=== PATIENT | female | born 1955 | race Caucasian/White ===

== ENCOUNTER 2023-09-02 07:28 | Observation (INO) ==
--- NOTE | 2023-08-08 13:13 | PAT Medication Instructions ---
Medication Instructions Date of Service August 08, 2023 Home Medications acetaminophen 500 mg tablet (Tylenol Extra Strength) 1,000 mg PO Q6H PRN aspirin 81 mg tablet,delayed release 81 mg PO HS atorvastatin 10 mg tablet 10 mg PO QAM cholecalciferol (vitamin D3) 25 mcg (1,000 unit) tablet (Vitamin D3) 25 mcg PO HS duloxetine 30 mg capsule,delayed release 30 mg PO QAM duloxetine 60 mg capsule,delayed release 60 mg PO QAM meclizine 25 mg tablet 25 mg PO TID PRN metformin 500 mg tablet 500 mg PO HS rabeprazole 20 mg tablet,delayed release (AcipHex) See Rx Instructions .Route .COMPLEX lorazepam 0.5 mg tablet 0.5 mg PO DAILY PRN ondansetron HCl 8 mg tablet 8 mg PO Q12H PRN lisinopril 5 mg tablet 20 mg PO QAM metoprolol succinate 25 mg tablet,extended release 24 hr 25 - 50 mg PO BID gabapentin 300 mg capsule 300 mg PO HS Continue as directed rabeprazole 20 mg tablet,delayed release (AcipHex) See Rx Instructions .Route .COMPLEX lorazepam 0.5 mg tablet 0.5 mg PO DAILY PRN(if needed) ASK your prescriber and surgeon aspirin 81 mg tablet,delayed release 81 mg PO HS DO NOT take the morning of surgery lisinopril 5 mg tablet 20 mg PO QAM Take morning of surgery With a small sip of water, OTHERWISE NOTHING TO EAT OR DRINK AFTER MIDNIGHT: acetaminophen 500 mg tablet (Tylenol Extra Strength) 1,000 mg PO Q6H PRN(if needed) atorvastatin 10 mg tablet 10 mg PO QAM duloxetine 30 mg capsule,delayed release 30 mg PO QAM duloxetine 60 mg capsule,delayed release 60 mg PO QAM meclizine 25 mg tablet 25 mg PO TID PRN(if needed) ondansetron HCl 8 mg tablet 8 mg PO Q12H PRN(if needed) metoprolol succinate 25 mg tablet,extended release 24 hr 25 - 50 mg PO BID Take evening before surgery acetaminophen 500 mg tablet (Tylenol Extra Strength) 1,000 mg PO Q6H PRN(if needed) cholecalciferol (vitamin D3) 25 mcg (1,000 unit) tablet (Vitamin D3) 25 mcg PO HS meclizine 25 mg tablet 25 mg PO TID PRN(if needed) ondansetron HCl 8 mg tablet 8 mg PO Q12H PRN(if needed) metformin 500 mg tablet 500 mg PO HS metoprolol succinate 25 mg tablet,extended release 24 hr 25 - 50 mg PO BID gabapentin 300 mg capsule 300 mg PO HS Other Notes If you have any questions please call us at [phone] or [phone] or [phone] or [phone]
--- NOTE | 2023-08-13 09:14 | Anesthesiology Consultation ---
Date of Service August 13, 2023 Assessment & Plan (1) Encounter for pre-operative examination: Plan - check BSG am DOS. - ER [facility], [place] 08/02/23: "...chest pain...cough, nausea, shortness of breath, pain across the back, stress...ECG showed a sinus tachycardia...negative cardiac troponin and chest x-ray. Her COVID, flu, RSV testing was negative. She had some mild hyperglycemia on her chemistry panel. There was a leukocytosis on CBC. The patient had a negative chest x-ray. In light of her tachycardia and symptoms a CT angio was performed to rule out PE or other pathology not seen on chest x-ray. Patient was given Tylenol, hydrated and given Zofran due to her nausea. On reassessment she was feeling somewhat better...mild headache but chest symptoms were improved. Nausea resolved. Patient was taken for CT imaging. After CT imaging the patient did note some nausea postcontrast administration. No hives or allergic symptoms. Patient was given additional dose of Zofran. She did request her evening gabapentin and Toprol. These were administered. Patient was noting improvement and blood pressure did improve. Given the flulike symptoms and findings on examination I discussed conservative management with the patient. She does not have any meningeal findings. Her blood pressure is improving. No PE or cardiac abnormalities on blood work or ECG. I suspect that this is infectious in nature given her leukocytosis and symptoms. Discussed initiation of doxycycline, Zofran as needed, albuterol and Tylenol. Patient has had no problems with doxycycline in the past. Patient does note sensitivity to most analgesia other than Tylenol. I will have her continue Tylenol and rest at home. Warning signs and symptoms for ER return were discussed. I gave my usual and customary discussion regarding this issue. By the evaluation outlined above other emergent etiologies such as those listed in the differential, as well as others, were deemed relatively unlikely..." - Case discussed in detail with Dr. Millan who advised patient is acceptable to proceed with surgery and does not need further evaluation from his standpoint. Chart Review Chart Review: Acceptable Risk for Surgery and Patient seen in Pre Admission Testing Teaching & Discussion Pre-Anesthesia Teaching/Discussion Notes: Instructed NPO after midnight before surgery, except medications with 15 cc of water. Medication instructions provided according to the PAT guidelines. History Surgery Operation Date: 09/02/23 11:25 Proposed Procedures p Right Shoulder Arthroscopic Subacromial Decompression Bursectomy Distal Clavicle Excision Rotator Cuff Repair with Regeneten Biologial Implant Debridement - Chapo Arceo MD Height/Weight Height: 5 ft 4 in Weight: 104.78 kg Allergies Allergy/AdvReac Type Severity Reaction Status Date / Time Penicillins Allergy Intermediate hives Verified 08/08/23 10:23 Sulfa (Sulfonamide Allergy Intermediate HIVES Verified 08/08/23 10:23 Antibiotics) codeine AdvReac Intermediate vomiting Verified 08/08/23 10:23 doxycycline AdvReac Intermediate GI upset Verified 08/13/23 09:28 Medications Home Medications Medication Instructions Recorded Confirmed Last Taken acetaminophen 500 mg tablet 1,000 mg PO Q6H PRN Pain 12/24/21 08/08/23 Unknown (Tylenol Extra Strength) aspirin 81 mg tablet,delayed 81 mg PO HS 12/24/21 08/08/23 08/01/23 release atorvastatin 10 mg tablet 10 mg PO QAM 12/24/21 08/08/23 08/01/23 cholecalciferol (vitamin D3) 25 25 mcg PO HS 12/24/21 08/08/23 08/02/23 mcg (1,000 unit) tablet (Vitamin D3) duloxetine 30 mg capsule,delayed 30 mg PO QAM 12/24/21 08/08/23 08/02/23 release duloxetine 60 mg capsule,delayed 60 mg PO QAM 12/24/21 08/08/23 08/02/23 release meclizine 25 mg tablet 25 mg PO TID PRN dizzyness 12/24/21 08/08/23 Unknown metformin 500 mg tablet 500 mg PO HS 12/24/21 08/08/23 08/02/23 08:00 rabeprazole 20 mg tablet,delayed See Rx Instructions .Route .COMPLEX 12/24/21 08/08/23 08/02/23 08:00 release (AcipHex) lorazepam 0.5 mg tablet 0.5 mg PO DAILY PRN Anxiety 06/29/22 08/08/23 Unknown ondansetron HCl 8 mg tablet 8 mg PO Q12H PRN NAUSEA/VOMITING 06/29/22 08/08/23 Unknown lisinopril 5 mg tablet 20 mg PO QAM 11/07/22 08/08/23 08/02/23 metoprolol succinate 25 mg 25 - 50 mg PO BID 11/07/22 08/08/23 08/02/23 13:00 tablet,extended release 24 hr gabapentin 300 mg capsule 300 mg PO HS 05/31/23 08/08/23 08/01/23 Past Medical History Medical History (Updated 08/13/23 @ 09:26 by Betsy Raymundo PA-C) Caregiver stress Cervical radiculopathy Cervical spinal stenosis Diabetes 1.5, managed as type 2 NIDDM Fibromyalgia GERD (gastroesophageal reflux disease) controlled, stable per pt Hypertension labile per pt Nausea and vomiting after administration of anesthetic agent denies needing scop patch Obesity (BMI 30-39.9) Osteoarthritis Partial tear of right rotator cuff Sleep apnea CPAP-compliant Vertigo controlled, stable per pt Patient denies h/o stroke, seizures, heart attack, heart failure, blood clots/DVTs or blood transfusions. Exercise / Class Metabolic Activity III < 4 Walking/Shop/Light housework (denies chest chest discomfort or shortness of breath with usual activities) Past Family History Family History Grandmother (Paternal) Colorectal cancer Grandfather (Maternal) Hypertension Mother Hypertension Sister Hypertension Other No family history of adverse response to anesthesia Past Surgical History Surgical History History of bilateral cataract extraction History of colonoscopy History of dacryocystorhinostomy left eye History of esophagogastroduodenoscopy (EGD) History of open reduction and internal fixation (ORIF) procedure left wrist--hardware in place History of open reduction and internal fixation (ORIF) procedure left ankle--hardware in place History of tonsillectomy Past Anesthesia History No Hx of Anesthesia Complications and No Family Hx of Anesthesia Complications History of PONV History of PONV (denies needing scop patch) and Hx of Motion Sickness Social History Smoking Status: Never smoker Do You Dip or Chew Tobacco: No Hx Alcohol Use: Yes (one mixed drink rarely) alcohol intake frequency: holidays/special occasions only Hx Substance Use: No substance use type: does not use Review of Systems Patient denies chest pain, shortness of breath, dyspnea on exertion, fever, chills, cough, wheezing, or palpitations. Patient did complete course of doxycycline for suspected infection with leukocytosis. Physical Exam Vital Signs Vitals BP 141/81 P 60 TEMP 98.2 SP02 96% on RA RESP 18 Physical Patient resting comfortably in chair in no acute distress, alert and oriented, responding appropriately throughout visit Full cervical extension range of motion without pain TMD < 3 finger breadths Mallampati Score 2 Dentition: intact, denies chipped or loose teeth, caps/crowns, implants or bridges Lungs: normal respiratory effort. Good air movement, clear throughout to auscultation, no adventitious breath sounds Cardiac: regular rate and rhythm, no murmurs noted Carotid arteries: negative bruit bilat Lab Results Anesthesia Preop Results Results Anesthesia Widget: WBC 8.99 K/ul (4.8-10.8) 08/13/23 Hgb 12.6 g/dl (12.0-16.0) 08/13/23 Hct 38.3 % (37.0-47.0) 08/13/23 Plt 316 K/uL (130-400) 08/13/23 Na 142 mmol/L (136-145) 08/13/23 K 4.0 mmol/L (3.5-5.1) 08/13/23 Cl 106 mmol/L (98-107) 08/13/23 CO2 31 mmol/L (21-32) 08/13/23 BUN 15 mg/dl (6-23) 08/13/23 Creat 0.83 mg/dl (0.6-1.2) 08/13/23 Glucose Level 111 mg/dl (70-99(Fasting)) H 08/13/23 PT 10.7 Seconds (9.0-12.0) 08/13/23 PTT 25 Seconds (21-31) 08/13/23 INR 1.0 (0.9-1.1) 08/13/23 HA1c 6.7 % (4.5-5.6) H 08/13/23 Urine Appearance Clear 07/29/23 COVID-19 PCR NEGATIVE (Negative) 08/02/23 Testing Electrocardiogram Date: 08/13/23 NSR, rate 64 bpm Chest X-Ray Date: 08/02/23 *1view* No significant change compared to the prior study. No acute process. Cervical Spine Date: 04/19/23 MRI 1. A broad-based posterior disc osteophyte complex at C5-C6 which abuts and defo lissette the anterior cord resulting in moderate central canal narrowing at this level. This disc bulge also displaces the exiting right nerve root at this level and results in severe right-sided neural foraminal narrowing. 2. Small focal central disc protrusions at C3-C4 and C6-C7 without significant central canal narrowing. 3. No fracture or subluxation within the cervical spine. Other Testing Chest CTA 08/02/23 No pulmonary embolism. No acute abnormality identified.
--- NOTE | 2023-09-01 17:22 | History & Physical Report ---
Date of Service September 01, 2023 Assessment & Plan (1) Partial tear of rotator cuff: Plan: Treatment options discussed with the patient. She has failed conservative measures and would like to proceed with surgery. Risks, benefits and alternatives to surgery including but not limited to infection, DVT, pain, stiffness, need for revision surgery, damage to blood vessels, damage to nerves, PE, , were discussed with the patient and they wish to proceed. Plan for right shoulder arthroscopy with subacromial decompression and distal clavicle excision, rotator cuff repair with Regeneten biologic implant scheduled for September 01 at [facility] with Dr. Arceo. All questions answered. Patient follow-up postop. Rotator cuff tear trauma status: unspecified whether traumatic Laterality: right Qualified Code(s): M75.111 - Incomplete rotator cuff tear or rupture of right shoulder, not specified as traumatic History of Present Illness Chief Complaint: Right shoulder pain Primary Care Provider: Nia Rodriguez MD 68-year-old female with past medical history significant for hypertension, CLARK, DM2 fibromyalgia who presents with ongoing right shoulder pain. Pain is interfering with her daily activities. She has failed conservative measures and like to proceed with surgery. Patient denies headaches, sweats, fevers, chills, double vision, blurred vision, cough, sore throat, dysphagia, chest pain, sob, wheezing, n/v/d/c, numbness, tingling, fatigue, urinary symptoms, mood disorders. ROS positive for right shoulder pain and stiffness. Allergies Allergy/AdvReac Type Severity Reaction Status Date / Time Penicillins Allergy Intermediate hives Verified 08/08/23 10:23 Sulfa (Sulfonamide Allergy Intermediate HIVES Verified 08/08/23 10:23 Antibiotics) codeine AdvReac Intermediate vomiting Verified 08/08/23 10:23 doxycycline AdvReac Intermediate GI upset Verified 08/13/23 09:28 Home Medications Medication Instructions Recorded Confirmed Type acetaminophen 500 mg tablet 1,000 mg PO Q6H PRN Pain 12/24/21 08/08/23 History (Tylenol Extra Strength) aspirin 81 mg tablet,delayed 81 mg PO HS 12/24/21 08/08/23 History release atorvastatin 10 mg tablet 10 mg PO QAM 12/24/21 08/08/23 History cholecalciferol (vitamin D3) 25 25 mcg PO HS 12/24/21 08/08/23 History mcg (1,000 unit) tablet (Vitamin D3) duloxetine 30 mg capsule,delayed 30 mg PO QAM 12/24/21 08/08/23 History release duloxetine 60 mg capsule,delayed 60 mg PO QAM 12/24/21 08/08/23 History release meclizine 25 mg tablet 25 mg PO TID PRN dizzyness 12/24/21 08/08/23 History metformin 500 mg tablet 500 mg PO HS 12/24/21 08/08/23 History rabeprazole 20 mg tablet,delayed See Rx Instructions .Route .COMPLEX 12/24/21 08/08/23 History release (AcipHex) lorazepam 0.5 mg tablet 0.5 mg PO DAILY PRN Anxiety 06/29/22 08/08/23 History ondansetron HCl 8 mg tablet 8 mg PO Q12H PRN NAUSEA/VOMITING 06/29/22 08/08/23 History lisinopril 5 mg tablet 20 mg PO QAM 11/07/22 08/08/23 History metoprolol succinate 25 mg 25 - 50 mg PO BID 11/07/22 08/08/23 History tablet,extended release 24 hr gabapentin 300 mg capsule 300 mg PO HS 05/31/23 08/08/23 History Past Med/Surg History Medical History (Updated 09/01/23 @ 17:24 by Tomas Melendrez PA-C) Obesity (BMI 30-39.9) Nausea and vomiting after administration of anesthetic agent denies needing scop patch Osteoarthritis Partial tear of right rotator cuff Cervical spinal stenosis Cervical radiculopathy Vertigo controlled, stable per pt Sleep apnea CPAP-compliant Diabetes 1.5, managed as type 2 NIDDM GERD (gastroesophageal reflux disease) controlled, stable per pt Fibromyalgia Caregiver stress Hypertension labile per pt Surgical History History of open reduction and internal fixation (ORIF) procedure left ankle--hardware in place History of open reduction and internal fixation (ORIF) procedure left wrist--hardware in place History of colonoscopy History of esophagogastroduodenoscopy (EGD) History of tonsillectomy History of dacryocystorhinostomy left eye History of bilateral cataract extraction Family History Grandmother (Paternal) Colorectal cancer Grandfather (Maternal) Hypertension Mother Hypertension Sister Hypertension Other No family history of adverse response to anesthesia Social History Smoking Status: Never smoker Second Hand Exposure: No; Do You Dip or Chew Tobacco: No; Tobacco Cessation Education Requested by Patient: No Hx Alcohol Use: Yes (one mixed drink rarely) Hx Substance Use: No Preferred Language: Croatian Communication Ability: Effective Visual Impairment: No Limitations Hearing Ability: Normal Bus Driver/Monitor Required: No Beliefs That Will Affect Care: None marital status: Current Living Situation: Spouse and Family Current Living Situation Comment: Lives with and sister current occupational status: retired Other Information That Helps Us Care for You: No Feels Safe at Home: Yes Safety Concerns: Feels Safe At This Time Assistive Devices: None Review of Systems All systems reviewed & are unremarkable except as noted in HPI & below Physical Exam Constitutional: well developed and well nourished; no acute distress Eyes: PERRL, conjunctivae normal, anicteric sclerae ENMT: external ear and nose normal, oropharynx normal Neck: trachea midline, no thyromegaly Respiratory: normal respiratory effort, lungs clear to auscultation Cardiovascular: RRR, no murmur, no edema Musculoskeletal: Right shoulder: Tenderness anterolateral acromion and AC joint. Positive impingement signs. Pain with resisted strength testing. Active abduction and forward flexion 180 degrees, external rotation at 90 degrees. Skin: no rashes, warm and dry Neurologic: patellar DTR's 2+ bilat, sensation intact Psychiatric: A+Ox3, euthymic affect Results & Data Diagnostic Findings Right shoulder MRI demonstrates rotator cuff tendinopathy with interstitial tearing. Findings consistent with subacromial impingement and AC joint arthritis. X-ray demonstrated no changes AC joint.
[~2023-09-02 07:28] MED LIST: BUPIVACAINE 0.5 % 5 MG/1 ML PF 10ML VIAL ONE; MIDAZOLAM HCL 1 MG/ML 2ML VIAL ONE; fentaNYL citrate PF 100 MCG/2 ML VIAL ONE
[2023-09-02] MEDS ORDERED: HYDROmorphone INJ 1 MG/ML SYRINGE IV PRN (08:11)
[2023-09-02] MEDS ORDERED: ATROPINE SULFATE 0.1 MG/ML 10ML SYR IV PRN (08:11)
[2023-09-02] MEDS ORDERED: ePHEDrine sulfate 50 MG/ML AMP IV PRN (08:11)
[2023-09-02] MEDS: LR 15ML/HR IV SCH (08:16)
[2023-09-02] MEDS ORDERED: ONDANSETRON INJ 2 MG/ML 2 ML VIAL ONE (08:29)
[2023-09-02] MEDS ORDERED: ROCURONIUM BROMIDE 10 MG/ML 5 ML VIAL IV ONE (08:29)
[2023-09-02] MEDS ORDERED: PROPOFOL IV EMULSION 10 MG/ML 20 ML VIAL IV ONE (08:29)
[2023-09-02] MEDS ORDERED: DEXAMETHASONE SOD INJ 4 MG/ML VIAL ONE (08:29)
[2023-09-02] MEDS ORDERED: LIDOCAINE 2% 2 ML VIAL/AMP(20MG/ML) INFIL ONE (08:29)
[2023-09-02] MEDS ORDERED: FAMOTIDINE/PF 20 MG/2 ML VIAL IV ONE (08:48)
--- NOTE | 2023-09-02 08:54 | History & Physical Bridge Note ---
Date of Service September 02, 2023 History & Physical Bridge Note I have examined the patient, reviewed the History & Physical and in the interval since the performance of the History & Physical I have noted the following changes of clinical significance: no changes noted
[2023-09-02] MEDS ORDERED: Nursing to Pharmacy Communication SCH (09:00)
[2023-09-02] MEDS: ceFAZolin 2000MG 2,000 MG/15 ML SYR IV SCH (09:18)
[2023-09-02] MEDS ORDERED: ePHEDrine sulfate 50 MG/ML AMP ONE (09:48)
[2023-09-02] MEDS ORDERED: SUGAMMADEX SODIUM 200 MG/2 ML VIAL IV ONE (09:48)
[2023-09-02] MEDS ORDERED: METOCLOPRAMIDE HCL INJ 5 MG/ML 2 ML VIAL ONE (09:48)
[2023-09-02] MEDS ORDERED: SUCCINYLCHOLINE CHLORIDE 20 MG/ML 10 ML VIAL IV ONE (09:48)
[2023-09-02] MEDS ORDERED: SODIUM CHLORIDE 0.9% PF INJ 10 ML VIAL ONE (09:48)
[2023-09-02] MEDS ORDERED: LABETALOL HCL IV 5 MG/ML 20ML IV ONE ×3 (10:12→10:47)
[2023-09-02] MEDS ORDERED: fentaNYL citrate PF 100 MCG/2 ML VIAL ONE (10:55)
[2023-09-02] MEDS: EPINEPHrine HCL INJ 1 MG/ML 30ML ONE (11:11)
--- NOTE | 2023-09-02 11:31 | Operative Report ---
Post Operative Report Pre & Post Diagnosis Operation Date: 09/02/23 09:25 Pre-Op Diagnosis: (1) Partial tear of rotator cuff, rotator cuff tendinopathy interstitial tear, subacromial impingement, acromioclavicular joint osteoarthritis. Post-Op Diagnosis: (1) Partial tear of rotator cuff with interstitial tear rotator cuff with rotator cuff tendinopathy and subacromial impingement and acromioclavicular joint osteoarthritis and synovitis glenohumeral joint, chondral fissure humeral head with fibrocartilage fibers type synovial tissue. I identified the patient and participated in the time-out.: Yes Procedure Operation Date: 09/02/23 09:25 Actual Procedures p Right Shoulder Arthroscopic rotator cuff repair with suture anchor repair and augmentation with Regeneten biological implant, debridement of rotator cuff, subacromial bursa, synovium glenohumeral joint, fibrous tissue humeral head. Chapo Arceo MD Surgeon Chapo Arceo MD Chief Media Officer Tomas LUNSFORD Estimated Blood Loss 5 Findings Consistent with Post-Op Diagnosis Specimens None Drains None Anesthesia Type General Regional Complications none Disposition Disposition: Recovery Room Indications 60-year-old female with a chronic right shoulder pain failed conservative management. Radiographs demonstrate she has subacromial impingement with type III acromion with acromioclavicular joint osteoarthritis and an interstitial tear of the rotator cuff with rotator cuff tendinopathy Description of Procedure The patient was to the operating room anesthetized under regional block and general anesthesia. The patient was positioned on the operating table in the 70 beach chair position. All of the other extremities were well-padded. The right upper extremity was prepped and draped in the usual sterile fashion. Examination demonstrated an obese shoulder with normal range of motion.. Arthroscopy of the shoulder was performed via anterior and posterior arthroscopy portals. Posterior portal was placed in the soft spot and the anterior portal was placed in the rotator interval. Subsequent portals included lateral subacromial and anterior posterior superior lateral portals for biological reabsorbable staple placement and a secondary lateral portal for peek staple placement. The following findings were noted: Glenohumeral joint the humerus had a transverse fissure across the humerus which could have an old fracture. It was nondisplaced and there was some fibro cartilage and fibrous type tissue in the area of the fissure anteriorly and posteriorly. There was more than typical thickened synovium around the labrum but the labrum was intact and the biceps and biceps anchor were intact and the rotator cuff was all intact from the intra-articular view aside from some minimal superficial fraying consistent with tendinopathy. In the subacromial space there was redundant thin rotator cuff tissue with small split that extended into a large interstitial tear with substantial degeneration of the rotator cuff mainly supraspinatus tendon. The entire attachment of the lateral aspect of the rotator cuff on the greater tuberosity was compromised due to the severe degeneration of the tendon. The upper leaf the tendon was very thin mainly in the lateral aspect. There was spur on the undersurface of the acromion with type III acromion with prominent inferior AC joint contribute to the impingement. There is a very tight subacromial space. There was also chronic subacromial bursitis. Attention was first taken to debriding the thickened synovium around the labrum and doing a very superficial debridement of the undersurface of the rotator cuff. The soft tissue fibrocartilage was debrided overlying the chondral fissure on the humeral articular surface. A thorough subacromial bursectomy was performed and the very thin lateral tissue was poor tissue and was just debrided and this exposed a larger interstitial type tear which was debrided tween the superior and inferior leaf of the rotator cuff. The frayed degenerative intratendinous tissue was debrided. The bursa and periosteum on the undersurface of the acromion was ablated with the radiofrequency ablator and the CA ligament was released off the anterior acromion. The CA ligament was debrided back. A 5.5 bur was used to plane down the acromion to type I flat shape. A radio frequency ablator was used to ablate the undersurface of 1 cm of the distal clavicle ablating the inferior capsule. This exposed the spurs on the undersurface of the clavicle. A 5.5 bur was used to resect 1 cm distal clavicle using the miranda through both the lateral and anterior portal. The superior and posterior capsule was preserved for stability. The area of detachment of the rotator cuff is debrided from the articular margin onto the lateral greater tuberosity leaving the medial intact rotator cuff intact. A triple loaded 5.5 mm Head & Nephew peek Helicoil suture anchor was placed into the lateral footprint of the supraspinatus and 3 sutures were passed through the superior leaf of the rotator cuff tear and brought this back over the greater tuberosity and had good fixation to the greater tuberosity. A large Regeneten biological implant was placed over the repair and transfixed with biological reabsorbable joaquin medially and laterally peek joaquin. The implant was stable with passive range of motion. The portal sites were closed with interrupted nylon sutures. Sterile dressings were applied and a sling immobilizer. The patient tolerated the procedure well. My physician assistant customer service manager Tomas LUNSFORD, assisted in arm positioning, instrument management, suture management, graft stabilization during stapling, incision closure, sling application, and will participate in the postoperative care of the patient. I attest to the content of the Intraoperative Record and any orders documented therein. Any exceptions are noted below.
[2023-09-02] MEDS: ONDANSETRON INJ 2 MG/ML 2 ML VIAL IV PRN ×2 (11:56→22:28)
[2023-09-02] MEDS: fentaNYL citrate PF 100 MCG/2 ML VIAL IV PRN (12:19)
[2023-09-02] MEDS: oxyCODONE/ACETAMINOPHEN 5mg/325mg TAB PO PRN (13:41)
--- NOTE | 2023-09-02 14:57 | Anesthesiology Progress Note ---
Date of Service September 02, 2023 Anesthesia Post Procedure Vital Signs Vital Signs: Temp Pulse Pulse Resp BP BP Pulse Ox 09/02/23 13:56 20 126/75 94 09/02/23 13:26 36.5 C 84 18 147/81 H 95 09/02/23 12:56 36.5 C 79 16 145/68 H 92 09/02/23 12:45 79 24 131/67 96 09/02/23 12:35 76 21 129/60 94 09/02/23 12:25 75 22 144/64 H 92 09/02/23 12:15 36.4 C L 76 22 132/63 93 09/02/23 12:05 76 22 142/49 H 92 09/02/23 11:55 72 22 157/52 H 95 09/02/23 11:45 71 20 142/88 H 95 09/02/23 11:35 36.1 C L 63 18 173/83 H 96 09/02/23 07:57 09/02/23 07:57 36.7 C 70 20 165/72 H 96 O2 Del Method O2 Flow Rate 09/02/23 13:56 Nasal Cannula 2 09/02/23 13:26 Nasal Cannula 2 09/02/23 12:56 Nasal Cannula 2 09/02/23 12:45 Nasal Cannula 2 09/02/23 12:35 Nasal Cannula 2 09/02/23 12:25 Nasal Cannula 2 09/02/23 12:15 Nasal Cannula 2 09/02/23 12:05 Nasal Cannula 2 09/02/23 11:55 Oxymask 4 09/02/23 11:45 Oxymask 4 09/02/23 11:35 Oxymask 6 09/02/23 07:57 Room Air 09/02/23 07:57 Room Air Pain Intensity Right Shoulder: Pain Intensity: 2 Transfer of Care Handoff Completed per policy Notes Mental Status: alert / awake / arousable and participated in evaluation Patient Amnestic to Procedure: Yes Nausea / Vomiting: adequately controlled Pain: adequately controlled Airway Patency, RR, SpO2: see Notes below BP & HR: stable & adequate Hydration State: stable & adequate Anesthetic Complications: no major complications apparent and Pt Satisfied with anesthetic care Notes: Sandra met criteria for phase 1 discharge. In Phase 2, patient continued to require 4L NC to maintain SpO2 in low to mid 90's. Nursing staff attempting to wean. Patient is sitting upright in no acute distress. She denies SOB. She was eating and drinking without difficulty. She is also using incentive spirometer. Spoke with patient and stated if she is unable to be weaned off of supplemental oxygen, she may require overnight observation on SpO2 monitor along with NC oxygen. Patient is ok with this plan. Surgical PA made aware.
[2023-09-02] MEDS: ONDANSETRON INJ 2 MG/ML 2 ML VIAL ONE (16:42)
[2023-09-02] MEDS ORDERED: MECLIZINE HCL 25 MG TAB PO PRN (16:56)
[2023-09-02] MEDS ORDERED: LORazepam 0.5 MG TAB PO PRN (16:56)
[2023-09-02] MEDS ORDERED: bisacodyL 10 MG SUPP PR PRN (16:56)
[2023-09-02] MEDS ORDERED: MAGNESIUM HYDROXIDE SUSP 30 ML UDC PO PRN (16:56)
[2023-09-02] MEDS ORDERED: PHARMACY GLYCEMIC MGMT CONSULT PRN (16:56)
[2023-09-02] MEDS ORDERED: NON-FORMULARY MEDICATION (Ondansetron Hcl 8 mg tablet) PO PRN (16:56)
[2023-09-02] MEDS ORDERED: NALOXONE HCL 0.4 MG/1 ML VIAL/CARP IV PRN (16:56)
[2023-09-02] MEDS ORDERED: GLUCAGON FOR INJ 1 MG VIAL IM PRN (17:30)
[2023-09-02] MEDS ORDERED: GLUCOSE 40% GEL 15 GM TUBE PO PRN (17:30)
[2023-09-02] MEDS ORDERED: GLUCOSE 10 TAB/TUBE PO PRN (17:30)
[2023-09-02] MEDS ORDERED: DEXTROSE 50% 50 ML SYRINGE IV PRN (17:30)
[2023-09-02] MEDS ORDERED: CARBOHYDRATES FOR HYPOGLYCEMIA PO PRN (17:30)
[2023-09-02] MEDS: HYDROmorphone INJ 0.5 MG/0.5 ML SYR IV PRN (17:32)
--- NOTE | 2023-09-02 18:13 | History & Physical Report ---
Date of Service September 02, 2023 Assessment & Plan Admission and Anticipated Discharge Date Admission Date: September 02, 2023 History of Present Illness Chief Complaint: Post-operative hypoxia; post-op medical management Primary Care Provider: Nia Rodriguez MD Sandra Hodgson is a 68 year old female with a PMH significant for CLARK, DMII, HTN, hyperlipidemia, reactive airway disease, and fibromyalgia who presented to the [facility] OR on 09/02/23 for scheduled Right Shoulder Arthroscopic rotator cuff repair with Dr. Arceo. Per the operative report, EBL was listed as 5 cc, anesthesia type was listed as "[facility]", and there were no reported intraoperative complications. We were consulted both for ongoing post- operative hypoxia and post-op medical management. At the time of the exam the patient was sitting in bed in no acute distress, currently eating dinner. She is currently stable on 2L NC. When asked, she states that she feels "pretty good" after her procedure. She is starting to regain sensation in her RUE, her pain is still well-controlled. She denies current fever, chills, SOB, chest pain, cough, abd pain, nausea, vomiting, diarrhea, dysuria, hematuria, melena, and LE swelling. She is complain with her nightly CPAP use, her is brining her home CPAP machine in. She denies a previous hx of tobacco abuse. She had all of her am medications except her Lisinopril prior to arrival to the Hospital earlier today. Please refer to Dr. Wells's attestation for any changes to the treatment plan Allergies Allergy/AdvReac Type Severity Reaction Status Date / Time Penicillins Allergy Intermediate hives Verified 09/02/23 07:50 Sulfa (Sulfonamide Allergy Intermediate HIVES Verified 09/02/23 07:50 Antibiotics) codeine AdvReac Intermediate vomiting Verified 09/02/23 07:50 doxycycline AdvReac Intermediate GI upset Verified 09/02/23 07:50 Home Medications Medication Instructions Recorded Confirmed Type aspirin 81 mg tablet,delayed 81 mg PO HS 12/24/21 09/02/23 History release atorvastatin 10 mg tablet 10 mg PO QAM 12/24/21 09/02/23 History cholecalciferol (vitamin D3) 25 25 mcg PO HS 12/24/21 09/02/23 History mcg (1,000 unit) tablet (Vitamin D3) duloxetine 30 mg capsule,delayed 30 mg PO QAM 12/24/21 09/02/23 History release duloxetine 60 mg capsule,delayed 60 mg PO QAM 12/24/21 09/02/23 History release meclizine 25 mg tablet 25 mg PO TID PRN dizzyness 12/24/21 09/02/23 History metformin 500 mg tablet 500 mg PO HS 12/24/21 09/02/23 History rabeprazole 20 mg tablet,delayed See Rx Instructions .Route .COMPLEX 12/24/21 09/02/23 History release (AcipHex) lorazepam 0.5 mg tablet 0.5 mg PO DAILY PRN Anxiety 06/29/22 09/02/23 History ondansetron HCl 8 mg tablet 8 mg PO Q12H PRN NAUSEA/VOMITING 06/29/22 09/02/23 History lisinopril 5 mg tablet 20 mg PO QAM 11/07/22 09/02/23 History metoprolol succinate 25 mg 25 - 50 mg PO BID 11/07/22 09/02/23 History tablet,extended release 24 hr gabapentin 300 mg capsule 300 mg PO HS 05/31/23 09/02/23 History ondansetron HCl 4 mg tablet 4 mg PO Q8H #20 tabs 09/02/23 Rx oxycodone-acetaminophen 5 mg-325 1 - 2 tab PO .Q4h-6h PRN pain #30 09/02/23 Rx mg tablet (Percocet) tabs Past Med/Surg History Medical History Obesity (BMI 30-39.9) Nausea and vomiting after administration of anesthetic agent denies needing scop patch Osteoarthritis Partial tear of right rotator cuff Cervical spinal stenosis Cervical radiculopathy Vertigo controlled, stable per pt Sleep apnea CPAP-compliant Diabetes 1.5, managed as type 2 NIDDM GERD (gastroesophageal reflux disease) controlled, stable per pt Fibromyalgia Caregiver stress Hypertension labile per pt Surgical History History of open reduction and internal fixation (ORIF) procedure left ankle--hardware in place History of open reduction and internal fixation (ORIF) procedure left wrist--hardware in place History of colonoscopy History of esophagogastroduodenoscopy (EGD) History of tonsillectomy History of dacryocystorhinostomy left eye History of bilateral cataract extraction Family History Grandmother (Paternal) Colorectal cancer Grandfather (Maternal) Hypertension Mother Hypertension Sister Hypertension Other No family history of adverse response to anesthesia Social History Smoking Status: Never smoker Second Hand Exposure: No; Do You Dip or Chew Tobacco: No; Tobacco Cessation Education Requested by Patient: No Hx Alcohol Use: No Hx Substance Use: No Preferred Language: Persian Communication Ability: Effective Visual Impairment: No Limitations Hearing Ability: Normal Therapy Tech Required: No Beliefs That Will Affect Care: None marital status: Current Living Situation: Spouse and Family Current Living Situation Comment: Lives with and sister current occupational status: retired Other Information That Helps Us Care for You: No Feels Safe at Home: Yes Safety Concerns: Feels Safe At This Time Assistive Devices: Brace/Splint/Immobilizer Physical Exam Physical Exam: Physical Exam: General: In no acute distress, stated age, well-nourished, non-toxic appearing HEENT: Normocephalic, atraumatic, no scleral icterus, pupils around round, symmetrical, and reactive to light, moist mucus membranes, Negative JVD, trachea midline, no thyromegaly Chest/Pulm: No respiratory distress, symmetrical chest expansion, decreased breath sounds in the right lower lobe, otherwise lungs are clear Cardiac: RRR, no murmurs noted Abdomen: Negative for ascites and bruising, normoactive bowel sounds, soft, non-tender to palpation throughout Musculoskeletal: Right upper extremity currently bandaged and with sling in place, intact sensation and motor function in the BL hands Extremities: Radial, dorsalis pedis, and posterior tibial pulses are intact and symmetrical, no edema noted in the BL LE's Skin: Warm, dry, no rashes , lesions, or scars noted Neuro: Alert and oriented to person, place, month, year, and president, no focal defects, no tremors noted Psych: No acute distress, calm and cooperative during the exam Results & Data Results & Data Vital Signs (Past 12 Hours) Vital Signs Temp Pulse Pulse Resp BP BP Pulse Ox 09/02/23 17:36 36.7 C 90 18 168/98 H 94 09/02/23 15:16 94 09/02/23 14:56 36.7 C 85 20 150/88 H 89 L 09/02/23 13:56 20 126/75 94 09/02/23 13:26 36.5 C 84 18 147/81 H 95 09/02/23 12:56 36.5 C 79 16 145/68 H 92 09/02/23 12:45 79 24 131/67 96 09/02/23 12:35 76 21 129/60 94 09/02/23 12:25 75 22 144/64 H 92 09/02/23 12:15 36.4 C L 76 22 132/63 93 09/02/23 12:05 76 22 142/49 H 92 09/02/23 11:55 72 22 157/52 H 95 09/02/23 11:45 71 20 142/88 H 95 09/02/23 11:35 36.1 C L 63 18 173/83 H 96 09/02/23 07:57 09/02/23 07:57 36.7 C 70 20 165/72 H 96 O2 Del Method O2 Flow Rate 09/02/23 17:36 Nasal Cannula 2 09/02/23 15:16 Nasal Cannula 2 09/02/23 14:56 Room Air 09/02/23 13:56 Nasal Cannula 2 09/02/23 13:26 Nasal Cannula 2 09/02/23 12:56 Nasal Cannula 2 09/02/23 12:45 Nasal Cannula 2 09/02/23 12:35 Nasal Cannula 2 09/02/23 12:25 Nasal Cannula 2 09/02/23 12:15 Nasal Cannula 2 09/02/23 12:05 Nasal Cannula 2 09/02/23 11:55 Oxymask 4 09/02/23 11:45 Oxymask 4 09/02/23 11:35 Oxymask 6 09/02/23 07:57 Room Air 09/02/23 07:57 Room Air Laboratory Results Abnormal lab results 09/02/23 09/02/23 09/02/23 Range/Units 08:20 11:38 17:13 POC Glucose 110 H 169 H 163 H (70-99) mg/dl Diagnostic Findings Chest X-Ray 09/02/23 18:04 XR chest 1V portable CLINICAL HISTORY: Psot operative hypoxia TECHNIQUE: Single frontal radiograph of the chest was obtained. Comparison: Comparison is made to chest radiograph 08/02/2023 FINDINGS: Exam is limited by underpenetration. Cardiomegaly is noted. Lungs are underinflated but grossly clear. There may be prominence of the pulmonary vasculature. No evidence of pleural effusion or pneumothorax. IMPRESSION: Cardiomegaly and mild pulmonary edema. ACT 112: Negative or not required by law. Electronically signed by: Tigre Del Real M.D. 09/02/2023 6:32 PM Code Status & VTE Plan VTE Prophylaxis Plan VTE Prophylaxis will be ordered: Yes PG Care Time/CCT Total # of Minutes Spent Total Time Spent with Patient: Total time spent is greater than 50% in coordination of care (as documented) at patient's floor/unit and/or counseling patient: Coding
--- NOTE | 2023-09-02 18:33 | XRay Report ---
XR chest 1V portable CLINICAL HISTORY: Psot operative hypoxia TECHNIQUE: Single frontal radiograph of the chest was obtained. Comparison: Comparison is made to chest radiograph 08/02/2023 FINDINGS: Exam is limited by underpenetration. Cardiomegaly is noted. Lungs are underinflated but grossly clear . There may be prominence of the pulmonary vasculature. No evidence of pleural effusion or pneumothor ax. IMPRESSION: Cardiomegaly and mild pulmonary edema. ACT 112: Negative or not required by law. Electronically signed by: Tigre Del Real M.D. 09/02/2023 6:32 PM
[2023-09-02] MEDS: INSULIN ASPART PER UNIT CHARGE SC SCH (18:41)
[2023-09-02] MEDS: SODIUM CHLORIDE 0.9% 1,000 ML IV SCH (18:43)
--- NOTE | 2023-09-02 18:54 | Hospitalist Consultation ---
Date of Consultation September 02, 2023 Assessment & Plan (1) Postoperative hypoxia: -Pain control, perioperative abx, and DVT PPX per the primary team -We were consulted as the patient required admission for ongoing post-operative hypoxia -CXR ordered at the time of the consult was read as "Cardiomegaly and mild pulmonary edema." >However, on evaluation the patient appears to have a right hemidiaphragm elevation, likely due to the nerve block received at the time of the right rotator cuff repair -She is currently stable on 2L NC and in no respiratory distress -Will give 20 mg IV lasix now with her mild pulmonary edema -Spoke with patient's nurse, they never started the IV fluids ordered by the primary team, will DC order now as she is eating/drinking normally -Continue pulmonary hygiene, patient confirms she has been using as instructed -Will obtain ECG for continued evaluation -Continue to monitor on continuous pulse oximetry -PRN O2 to keep SpO2 at or above 92% -Agree with am CBC and BMP tomorrow, we will review -Please reach out with any other questions or concerns -Medicine will continue to follow (2) Status post right rotator cuff repair: -Pain control, perioperative abx, and DVT PPX per the primary team -Patient is currently Post-op day #0 S/P right rotator cuff repair with Dr. Arceo -Currently with intact sensation and motor function in the BL hands -Rest of care per the primary team (3) DM type 2 (diabetes mellitus, type 2): -Pharmacy glycemic consult placed by the primary team -Orders have been placed -Continue to follow pharmacy glycemic consult (4) GERD (gastroesophageal reflux disease): -Continue pantoprazole (5) Benign essential HTN: -Stable -Can resume lisinopril and metoprolol (6) Sleep apnea: -Patient's is brining in her CPAP machine -HS CPAP order placed Plan The patient was discussed with Dr. Wells at the time of the consult Supervising Physician Co-Signing Physician Notes Patient seen and examined, chart reviewed, case discussed with Alfonzo and I agree with the assessment and plan as above except as otherwise noted above. General: A&Ox3. NAD. Cooperative. HEENT: Atraumatic, normocephalic. Pulm: R lung diminished. No wheezes/rales. +crackles in the bases. Cardiac: RRR, -mrg. Radial pulses intact and symmetrical. Ext: RUE in postop sling, care management associate and soft touch intact. Radial pulse intact. All labs and images reviewed Feels well. Pain improved with narcotics but +nausea --> improves with zofran. Slight SoB worsened on exertion. CXR w/ R hemiparesis likely 2/2 block, incentive katya encouraged. 1x lasix for mild volume overload. CPAP qhs. Oth erwise agree as above. History of Present Illness Reason for Consultation: Post-op hypoxia, post-op medical management Requesting Physician: Dr. Arceo Attending Physician: Dr. Joe Wells History of Present Illness Sandra Hodgson is a 68 year old female with a PMH significant for CLARK, DMII, HTN, hyperlipidemia, reactive airway disease, and fibromyalgia who presented to the [facility] OR on 09/02/23 for scheduled Right Shoulder Arthroscopic rotator cuff repair with Dr. Arceo. Per the operative report, EBL was listed as 5 cc, anesthesia type was listed as "[facility]", and there were no reported intraoperative complications. We were consulted both for ongoing post- operative hypoxia and post-op medical management. At the time of the exam the patient was sitting in bed in no acute distress, currently eating dinner. She is currently stable on 2L NC. When asked, she states that she feels "pretty good" after her procedure. She is starting to regain sensation in her RUE, her pain is still well-controlled. She denies current fever, chills, SOB, chest pain, cough, abd pain, nausea, vomiting, diarrhea, dysuria, hematuria, melena, and LE swelling. She is complain with her nightly CPAP use, her is brining her home CPAP machine in. She denies a previous hx of tobacco abuse. She had all of her am medications except her Lisinopril prior to arrival to the Hospital earlier today. Allergies Allergy/AdvReac Type Severity Reaction Status Date / Time Penicillins Allergy Intermediate hives Verified 09/02/23 07:50 Sulfa (Sulfonamide Allergy Intermediate HIVES Verified 09/02/23 07:50 Antibiotics) codeine AdvReac Intermediate vomiting Verified 09/02/23 07:50 doxycycline AdvReac Intermediate GI upset Verified 09/02/23 07:50 Home Medications Medication Instructions Recorded Confirmed Type aspirin 81 mg tablet,delayed 81 mg PO HS 12/24/21 09/02/23 History release atorvastatin 10 mg tablet 10 mg PO QAM 12/24/21 09/02/23 History cholecalciferol (vitamin D3) 25 25 mcg PO HS 12/24/21 09/02/23 History mcg (1,000 unit) tablet (Vitamin D3) duloxetine 30 mg capsule,delayed 30 mg PO QAM 12/24/21 09/02/23 History release duloxetine 60 mg capsule,delayed 60 mg PO QAM 12/24/21 09/02/23 History release meclizine 25 mg tablet 25 mg PO TID PRN dizzyness 12/24/21 09/02/23 History metformin 500 mg tablet 500 mg PO HS 12/24/21 09/02/23 History rabeprazole 20 mg tablet,delayed See Rx Instructions .Route .COMPLEX 12/24/21 09/02/23 History release (AcipHex) lorazepam 0.5 mg tablet 0.5 mg PO DAILY PRN Anxiety 06/29/22 09/02/23 History ondansetron HCl 8 mg tablet 8 mg PO Q12H PRN NAUSEA/VOMITING 06/29/22 09/02/23 History lisinopril 5 mg tablet 20 mg PO QAM 11/07/22 09/02/23 History metoprolol succinate 25 mg 25 - 50 mg PO BID 11/07/22 09/02/23 History tablet,extended release 24 hr gabapentin 300 mg capsule 300 mg PO HS 05/31/23 09/02/23 History ondansetron HCl 4 mg tablet 4 mg PO Q8H #20 tabs 09/02/23 Rx oxycodone-acetaminophen 5 mg-325 1 - 2 tab PO .Q4h-6h PRN pain #30 09/02/23 Rx mg tablet (Percocet) tabs Patient History Medical History (Updated 09/02/23 @ 18:49 by Cesario Saba PA-C) Obesity (BMI 30-39.9) Nausea and vomiting after administration of anesthetic agent denies needing scop patch Osteoarthritis Partial tear of right rotator cuff Cervical spinal stenosis Cervical radiculopathy Vertigo controlled, stable per pt Sleep apnea CPAP-compliant Diabetes 1.5, managed as type 2 NIDDM GERD (gastroesophageal reflux disease) controlled, stable per pt Fibromyalgia Caregiver stress Hypertension labile per pt Surgical History (Updated 09/02/23 @ 18:49 by Cesario Saba PA-C) History of open reduction and internal fixation (ORIF) procedure left ankle--hardware in place History of open reduction and internal fixation (ORIF) procedure left wrist--hardware in place History of colonoscopy History of esophagogastroduodenoscopy (EGD) History of tonsillectomy History of dacryocystorhinostomy left eye History of bilateral cataract extraction Family History Grandmother (Paternal) Colorectal cancer Grandfather (Maternal) Hypertension Mother Hypertension Sister Hypertension Other No family history of adverse response to anesthesia Social History Smoking Status: Never smoker Second Hand Exposure: No; Do You Dip or Chew Tobacco: No; Tobacco Cessation Education Requested by Patient: No Hx Alcohol Use: No Hx Substance Use: No Preferred Language: Venezuelan Communication Ability: Effective Visual Impairment: No Limitations Hearing Ability: Normal Kiln Furniture Caster Required: No Beliefs That Will Affect Care: None marital status: Current Living Situation: Spouse and Family Current Living Situation Comment: Lives with and sister current occupational status: retired Other Information That Helps Us Care for You: No Feels Safe at Home: Yes Safety Concerns: Feels Safe At This Time Assistive Devices: Brace/Splint/Immobilizer Physical Exam Physical Exam: Physical Exam: General: In no acute distress, stated age, well-nourished, non- toxic appearing HEENT: Normocephalic, atraumatic, no scleral icterus, pupils around round, symmetrical, and reactive to light, moist mucus membranes, Negative JVD, trachea midline, no thyromegaly Chest/Pulm: No respiratory distress, symmetrical chest expansion, decreased breath sounds in the right lower lobe, otherwise lungs are clear Cardiac: RRR, no murmurs noted Abdomen: Negative for ascites and bruising, normoactive bowel sounds, soft, non-tender to palpation throughout Musculoskeletal: Right upper extremity currently bandaged and with sling in place, intact sensation and motor function in the BL hands Extremities: Radial, dorsalis pedis, and posterior tibial pulses are intact and symmetrical, no edema noted in the BL LE's Skin: Warm, dry, no rashes , lesions, or scars noted Neuro: Alert and oriented to person, place, month, year, and president, no focal defects, no tremors noted Psych: No acute distress, calm and cooperative during the exam Results & Data Results & Data Vital Signs (Past 12 Hours) Vital Signs Temp Pulse Pulse Resp BP BP Pulse Ox 09/02/23 17:36 36.7 C 90 18 168/98 H 94 09/02/23 15:16 94 09/02/23 14:56 36.7 C 85 20 150/88 H 89 L 09/02/23 13:56 20 126/75 94 09/02/23 13:26 36.5 C 84 18 147/81 H 95 09/02/23 12:56 36.5 C 79 16 145/68 H 92 09/02/23 12:45 79 24 131/67 96 09/02/23 12:35 76 21 129/60 94 09/02/23 12:25 75 22 144/64 H 92 09/02/23 12:15 36.4 C L 76 22 132/63 93 09/02/23 12:05 76 22 142/49 H 92 09/02/23 11:55 72 22 157/52 H 95 09/02/23 11:45 71 20 142/88 H 95 09/02/23 11:35 36.1 C L 63 18 173/83 H 96 09/02/23 07:57 09/02/23 07:57 36.7 C 70 20 165/72 H 96 O2 Del Method O2 Flow Rate 09/02/23 17:36 Nasal Cannula 2 09/02/23 15:16 Nasal Cannula 2 09/02/23 14:56 Room Air 09/02/23 13:56 Nasal Cannula 2 09/02/23 13:26 Nasal Cannula 2 09/02/23 12:56 Nasal Cannula 2 09/02/23 12:45 Nasal Cannula 2 09/02/23 12:35 Nasal Cannula 2 09/02/23 12:25 Nasal Cannula 2 09/02/23 12:15 Nasal Cannula 2 09/02/23 12:05 Nasal Cannula 2 09/02/23 11:55 Oxymask 4 09/02/23 11:45 Oxymask 4 09/02/23 11:35 Oxymask 6 09/02/23 07:57 Room Air 09/02/23 07:57 Room Air Laboratory Results Abnormal lab results 09/02/23 09/02/23 09/02/23 Range/Units 08:20 11:38 17:13 POC Glucose 110 H 169 H 163 H (70-99) mg/dl Diagnostic Findings Chest X-Ray 09/02/23 18:04 XR chest 1V portable CLINICAL HISTORY: Psot operative hypoxia TECHNIQUE: Single frontal radiograph of the chest was obtained. Comparison: Comparison is made to chest radiograph 08/02/2023 FINDINGS: Exam is limited by underpenetration. Cardiomegaly is noted. Lungs are underinflated but grossly clear. There may be prominence of the pulmonary vasculature. No evidence of pleural effusion or pneumothorax. IMPRESSION: Cardiomegaly and mild pulmonary edema. ACT 112: Negative or not required by law. Electronically signed by: Tigre Del Real M.D. 09/02/2023 6:32 PM ECG Additional Comments: Will obtain at the time of the consult PG Care Time/CCT Total # of Minutes Spent Total Time Spent with Patient: Total time spent is greater than 50% in coordination of care (as documented) at patient's floor/unit and/or counseling patient: Coding [place] [address] IN/OBS CONSULT LVL 5,80M Patient Type Established Medical Decision Making High Complexity Diagnoses Postoperative hypoxia R09.02; Z98.890 Status post right rotator cuff repair Z98.890 DM type 2 (diabetes mellitus, type 2) E11.9 GERD (gastroesophageal reflux disease) K21.9 Benign essential HTN I10 Sleep apnea G47.30
[2023-09-02] MEDS: FUROSEMIDE INJ 20 MG/2 ML VIAL IV ONE (19:56)
[2023-09-02] MEDS: ASPIRIN 81 MG ECTAB PO SCH (19:56)
[2023-09-02] MEDS: CHOLECALCIFEROL 25 MCG (1000 UNITS) TAB PO SCH (19:57)
[2023-09-02] MEDS: GABAPENTIN 300 MG CAP PO SCH (19:57)
[2023-09-02] MEDS: PANTOprazole 40 MG TAB PO SCH (19:57)
[2023-09-02] MEDS: SENNA 8.6 MG TAB PO SCH (19:58)
[2023-09-02] MEDS: DOCUSATE SODIUM 100 MG CAP PO SCH (19:58)
[2023-09-02] MEDS: METOCLOPRAMIDE HCL INJ 5 MG/ML 2 ML VIAL IV PRN (20:43)
[2023-09-02] MEDS: METOPROLOL SUCC 25MG EXT REL TAB PO SCH (20:43)
[2023-09-03 07:03] LABS: Basophils # (auto) 0.03 K/uL (0.00-0.20); Basophils % (auto) 0.3 %; Eosinophils # (auto) 0.06 K/uL (0.00-0.50); Eosinophils % (auto) 0.5 %; Hemoglobin 12.2 g/dl (12.0-16.0); Immature Granulocytes # (auto) 0.04 K/uL (0.01-0.20); Immature Granulocytes % (auto) 0.4 %; Lymphocytes % (auto) 26.1 %; Mean Corpuscular Volume 94.1 fL (80.0-100.0); Mean Platelet Volume 10.5 fL (9.4-12.4); Monocytes # (auto) 1.19 K/uL (0.11-0.59); Monocytes % (auto) 10.7 %; Platelet Count 256 K/uL (130-400); RDW Coefficient of Variation 12.8 % (11.5-14.5); RDW Standard Deviation 44.5 fL (36.4-46.3); Red Blood Count 3.93 M/uL (4.20-5.40); White Blood Count 11.12 K/ul (4.8-10.8)
--- NOTE | 2023-09-03 07:16 | Orthopedic Progress Note ---
Date of Service September 03, 2023 Assessment & Plan (1) Status post right rotator cuff repair: Plan: POD #1 s/p Right Shoulder Arthroscopic rotator cuff repair with suture anchor repair and augmentation with Regeneten biological implant, debridement of rotator cuff, subacromial bursa, synovium glenohumeral joint, fibrous tissue humeral head patient admitted for post op hypoxia, appreciate medical input. will see how she does this am, if she continues to improve can be d/c home later today. f/u in the office in 10-12 days (2) Postoperative hypoxia: Admission and Anticipated Discharge Date Admission Date: September 02, 2023 Subjective POD #1 s/p Right Shoulder Arthroscopic rotator cuff repair with suture anchor repair and augmentation with Regeneten biological implant, debridement of rotator cuff, subacromial bursa, synovium glenohumeral joint, fibrous tissue humeral head. admitted for post op hypoxia Review of Systems Constitutional: no fever and no chills Respiratory: no cough and no dyspnea Cardiovascular: no chest pain, no dyspnea and no orthopnea Gastrointestinal: no abdominal pain, no nausea and no vomiting Physical Exam Physical Exam: Vital Signs Temp 37.0 C 09/03/23 02:46 Pulse 72 09/03/23 02:46 Resp 17 09/03/23 02:46 BP 135/84 09/03/23 02:46 Pulse Ox 94 09/03/23 02:46 O2 Del Method CPAP 09/03/23 02:46 O2 Flow Rate 2.5 09/03/23 02:46 Intake & Output 09/02/23 09/03/23 09/03/23 18:59 06:59 18:59 Intake Total 1000 / 1000 Output Total 5 / 5 Balance 995 / 995 Weight 251 kg Intake: IV 0 / 0 Lactated Ringe r's 1,000 ml @ 15 0 / 0 mls/hr IV .Q24 H YUSEF Rx#: [id number] IV Perioperative 1000 / 1000 Output: Estimated Blood Loss 5 / 5 Other: # Unmeasured Voi ds 1 4 Weight Measureme nt Method Built in Bedscale Musculoskeletal: Right Shoulder- dressing clean and dry. Rad pulse +2, radial/median/ulnar nerves intact distally Results & Data Vital Signs (Past 12 Hours) Vital Signs Temp Pulse Resp BP Pulse Ox O2 Del Method O2 Flow Rate 09/03/23 02:46 37.0 C 72 17 135/84 94 CPAP 2.5 03/18/24 23:09 36.8 C 85 16 154/81 H 95 Nasal Cannula 2 Laboratory Results Laboratory Results WBC 11.12 K/ul (4.8-10.8) H 09/03/23 06:35 RBC 3.93 M/uL (4.20-5.40) L 09/03/23 06:35 Hgb 12.2 g/dl (12.0-16.0) 09/03/23 06:35 Hct 37.0 % (37.0-47.0) 09/03/23 06:35 MCV 94.1 fL (80.0-100.0) 09/03/23 06:35 MCH 31.0 pg (25.0-34.0) 09/03/23 06:35 MCHC 33.0 g/dL (32.0-36.0) 09/03/23 06:35 RDW Std Deviation 44.5 fL (36.4-46.3) 09/03/23 06:35 RDW Coeff of Cooper 12.8 % (11.5-14.5) 09/03/23 06:35 Plt Count 256 K/uL (130-400) 09/03/23 06:35 MPV 10.5 fL (9.4-12.4) 09/03/23 06:35 Immature Gran % (Auto) 0.4 % 09/03/23 06:35 Neut % (Auto) 62.0 % 09/03/23 06:35 Lymph % (Auto) 26.1 % 09/03/23 06:35 Ray % (Auto) 10.7 % 09/03/23 06:35 Eos % (Auto) 0.5 % 09/03/23 06:35 Baso % (Auto) 0.3 % 09/03/23 06:35 Neut # (Auto) 6.90 K/uL (1.40-6.50) H 09/03/23 06:35 Lymph # (Auto) 2.90 K/uL (1.20-3.40) 09/03/23 06:35 Ray # (Auto) 1.19 K/uL (0.11-0.59) H 09/03/23 06:35 Eos # (Auto) 0.06 K/uL (0.00-0.50) 09/03/23 06:35 Baso # (Auto) 0.03 K/uL (0.00-0.20) 09/03/23 06:35 Immature Gran # (Auto) 0.04 K/uL (0.01-0.20) 09/03/23 06:35 POC Glucose 162 mg/dl (70-99) H 09/02/23 20:42 Impressions Chest X-Ray 09/02/23 18:04 XR chest 1V portable CLINICAL HISTORY: Psot operative hypoxia TECHNIQUE: Single frontal radiograph of the chest was obtained. Comparison: Comparison is made to chest radiograph 08/02/2023 FINDINGS: Exam is limited by underpenetration. Cardiomegaly is noted. Lungs are underinflated but grossly clear. There may be prominence of the pulmonary vasculature. No evidence of pleural effusion or pneumothorax. IMPRESSION: Cardiomegaly and mild pulmonary edema. ACT 112: Negative or not required by law. Electronically signed by: Tigre Del Real M.D. 09/02/2023 6:32 PM
[2023-09-03 07:29] LABS: BUN Creatinine Ratio 15.7 (10-20); Creatinine Clr Calc Pharmacy 136.4 ml/min; Est GFR (Non-African American) 72.5 ml/min; Potassium 3.6 mmol/L (3.5-5.1)
[2023-09-03] MEDS: MULTIVITAMIN TAB PO SCH (08:13)
[2023-09-03] MEDS: lisinopril 20 MG TAB PO SCH (08:13)
[2023-09-03] MEDS: METOPROLOL SUCC 50MG EXT REL TAB PO SCH (08:13)
[2023-09-03] MEDS: DULoxetine HCL 60 MG CAP PO SCH (08:14)
[2023-09-03] MEDS: ATORVASTATIN 10 MG TAB PO SCH (08:14)
[2023-09-03] MEDS: DULoxetine HCL 30 MG CAP PO SCH (08:14)
--- NOTE | 2023-09-03 09:22 | Pharmacy Report ---
Pharmacy Glycemic Short Note 2 - Date of Service September 03, 2023 - Glycemic Short BSG Results (Last 24 hours): 09/02/23 09/02/23 09/02/23 11:38 17:13 20:42 Glucose POC Glucose 169 H 163 H 162 H 09/03/23 09/03/23 06:35 07:32 Glucose 125 H POC Glucose 119 H OUTPATIENT ANTIDIABETIC REGIMEN: * Metformin 500 mg PO HS * HbA1c: 6.7% (08/13/23) ASSESSMENT: * 68 yo F admitted on 09/02/23 postoperatively following a right shoulder arthroscopy. Pharmacy has been consulted to assist with inpatient glycemic management. Patient is a Type 2 diabetic as an outpatient. Please refer to outpatient regimen and most recent HbA1c above. * Pre-op BSG was 110 mg/dL. Received 4 mg IV dexamethasone intra-op. Post-op BSGs last night were 163 mg/dL and 162 mg/dL. Ordered and tolerating a T2DM diet. Received 9 units total of bolus insulin last evening. * Fasting BSG at 119 mg/dL this AM. Continue to hold basal insulin. Metformin can likely be resumed this evening. Continue with current bolus insulin parame ters. Possible discharge later today. PLAN FOR INPATIENT GLYCEMIC CONTROL: * Hold outpatient oral diabetes medications * Basal insulin * None * Bolus insulin * NovoLog per scale ACHS or Q6hrs while NPO * Goal Range: Low 110 mg/dL - High 140 mg/dL * Correction Factor: 20 mg/dL/unit * Nutritional / Prandial insulin per carb ratio of 1 unit per 7 grams CHO co nsumed
--- NOTE | 2023-09-03 11:59 | Hospitalist Progress Note ---
Date of Service September 03, 2023 Assessment & Plan (1) Postoperative hypoxia: Plan: -Hospital medicine was consulted due to ongoing post-operative hypoxia -CXR ordered at the time of the consult was read as "Cardiomegaly and mild pulmonary edema." --However, on evaluation the patient appears to have a right hemidiaphragm elevation, likely due to the nerve block received at the time of the right rotator cuff repair -ECG on 09/03/23 showed NSR with non-specific T wave abnormalities -- no signs of ACS at this time -PRN O2 to keep SpO2 at or above 92% --Continue to monitor on continuous pulse oximetry -Continue pulmonary hygiene, patient confirms she has been using as instructed -CTA ordered to eval for PE because of worsened SOB --no evidence of PE. -- Supports that the dyspnea is due to right hemidiaphragm elevation secondary to nerve block from surgery -Assuming no problems overnight, anticipate sign off from medicine tomorrow, and can defer disposition to discharge to primary team -Please reach out with any other questions or concerns -Medicine will continue to follow (2) Status post right rotator cuff repair: Plan: -Patient had right rotator cuff repair with Dr. Arceo on 09/02/2023 -Pain control, perioperative abx, and DVT PPX per the primary team (3) DM type 2 (diabetes mellitus, type 2): Plan: -Pharmacy glycemic consult placed by the primary team -Orders have been placed -Continue to follow pharmacy glycemic consult (4) GERD (gastroesophageal reflux disease): Plan: -Continue pantoprazole (5) Benign essential HTN: Plan: -Chronic and stable -Continue lisinopril and metoprolol (6) Sleep apnea: Plan: -Continue home CPAP machine HS Plan The patient was discussed with Dr. Wells at the time of the consult Admission and Anticipated Discharge Date Admission Date: September 02, 2023 Subjective Patient seen and evaluated at bedside with daughter. She reports worsening shortness of breath compared to yesterday. She is dyspneic and tachypneic at rest, which is exacerbated when talking. Patient reports that it "hurts to take a deep breath." CTA ordered to evaluate for PE. Additionally, she reports that her pain is well-managed with medication. She has no complaints at this time other than the shortness of breath. She denies chest pain, nausea or vomiting, lightheadedness, dizziness, or urinary problems. Physical Exam Physical Exam: General: No acute distress, nondiaphoretic, well-developed, well-nourished. Right arm in sling. Skin: The skin was without rashes, erythema, edema, or bruising. Adequate perfusion to right fingers. Cardiac: Regular rate and rhythm without murmurs gallops or rubs. Pulm: Tachypneic. Decreased breath sounds in the right lower lobe, otherwise lungs are clear. No retractions or accessory muscle use. Abdominal: Positive bowel sounds x 4. Soft, nontender, without masses or organomegaly. No guarding or rebound tenderness. Neuro: A&O x3. No focal neurological deficits. Results & Data Results & Data Vital Signs (Past 12 Hours) Vital Signs Temp Pulse Resp BP Pulse Ox O2 Del Method O2 Flow Rate 09/03/23 09:00 Nasal Cannula 2 09/03/23 07:35 36.8 C 73 138/64 92 CPAP 09/03/23 02:46 37.0 C 72 17 135/84 94 CPAP 2.5 Laboratory Results Reviewed CBC Reviewed BMP PG Care Time/CCT Total # of Minutes Spent Total Time Spent with Patient: Total time spent is greater than 50% in coordination of care (as documented) at patient's floor/unit and/or counseling patient: Coding Level of Care Code 04990 SUB INP/OBS CARE 3/50MIN Diagnoses Postoperative hypoxia R09.02; Z98.890 Status post right rotator cuff repair Z98.890 DM type 2 (diabetes mellitus, type 2) E11.9 GERD (gastroesophageal reflux disease) K21.9 Benign essential HTN I10 Sleep apnea G47.30
[2023-09-03] MEDS: OPTIRAY 320 125ml IV ONE (12:07)
--- NOTE | 2023-09-03 14:47 | Electrocardiogram Report ---
Test Reason : Blood Pressure : / mmHG Vent. Rate : 087 BPM Atrial Rate : 087 BPM P-R Int : 178 ms QRS Dur : 064 ms QT Int : 332 ms P-R-T Axes : 007 013 083 degrees QTc Int : 399 ms Normal sinus rhythm Nonspecific T wave abnormality Abnormal ECG When compared with ECG of 13-AUG-2023 09:44, Nonspecific T wave abnormality, worse in Anterolateral leads Confirmed by Hawk Lin ([id number]) on 09/03/2023 2:46:54 PM Referred By: Chapo Arceo Confirmed By:Dakota Lin
--- NOTE | 2023-09-03 17:21 | CT Scan Report ---
CT ANGIOGRAM OF THE CHEST CLINICAL HISTORY: Dyspnea. Recent shoulder surgery. COMPARISON STUDY: Chest x-ray dated 09/02/2023. Chest CT dated 08/02/2023. TECHNIQUE: Following the IV administration of 117 cc of Optiray 320, CT angiogram of the chest was pe rformed from the upper abdomen to the thoracic inlet utilizing the pulmonary embolus protocol. Images are reviewed in the axial, sagittal, and coronal planes. 3-D MIPS images are created and assessed. I V contrast was administered without complication. A dose lowering technique was utilized adhering to the principles of ALARA. The Examination is degraded by motion artifact, as well as by streak artifa ct from the right arm which could not be elevated above the chest. CT DOSE: 891.01 mGy.cm FINDINGS: Thyroid: Imaged portions of the thyroid gland are normal in size and attenuation. Thoracic aorta: The thoracic aorta is normal in caliber and demonstrates standard 3-vessel arch anato my. No dissection is seen. Pulmonary vasculature: The pulmonary trunk is normal in caliber. There are no filling defects identif ied in main, lobar, or segmental pulmonary branches to suggest pulmonary embolus. Evaluation of the p eripheral branches is degraded by motion artifact. Heart: The heart is top normal in size and without pericardial effusion. Lungs and pleural spaces: Evaluation of the lung parenchyma is significantly degraded by motion artif act. The trachea and central airways are clear. There is segmental atelectasis at the right lung base with elevation of the right hemidiaphragm. Subsegmental atelectasis is seen at the left lung base. N o airspace consolidation typical for pneumonia or pleural effusion is identified. Mediastinum: There is no mediastinal lymphadenopathy. Dianna: Clear. Axillae: There is no axillary lymphadenopathy. Upper abdomen: There is a small hiatal hernia. The liver is steatotic. Skeletal structures: The skeletal structures are osteopenic. No lytic or blastic bony lesions are see n. Foci of soft tissue gas and swelling overlying the right shoulder likely represent expected postsu rgical change. Degenerative change is noted in the shoulders and spine. IMPRESSION: 1. Streak and motion compromised examination. 2. There is no evidence of pulmonary embolus in the main, lobar, or segmental pulmonary arteries. 3. There is significant bibasilar atelectasis. No airspace consolidation typical for pneumonia or ple ural effusion is identified. 4. Soft tissue swelling and foci of subcutaneous gas overlying the right shoulder likely represent ex pected postsurgical change. Correlate clinically. 5. Hepatic steatosis. 6. Additional findings as above. ACT 112: Negative or not required by law. Electronically signed by: Jani Mackay M.D. 09/03/2023 5:20 PM
[2023-09-04 07:06] LABS: Hematocrit (blood only) 38.4 % (37.0-47.0); Hemoglobin 12.1 g/dl (12.0-16.0); Mean Corpuscular Hemoglobin 30.9 pg (25.0-34.0); Mean Corpuscular Hgb Conc 31.5 g/dL (32.0-36.0); Mean Platelet Volume 10.3 fL (9.4-12.4); Platelet Count 265 K/uL (130-400); RDW Coefficient of Variation 13.2 % (11.5-14.5); RDW Standard Deviation 47.3 fL (36.4-46.3); Red Blood Count 3.92 M/uL (4.20-5.40); White Blood Count 10.57 K/ul (4.8-10.8)
--- NOTE | 2023-09-04 07:14 | Orthopedic Progress Note ---
Date of Service September 04, 2023 Assessment & Plan (1) Status post right rotator cuff repair: Plan: POD #2 s/p Right Shoulder Arthroscopic rotator cuff repair with suture anchor repair and augmentation with Regeneten biological implant, debridement of rotator cuff, subacromial bursa, synovium glenohumeral joint, fibrous tissue humeral head -Continues to shortness of breath and requires oxygen. Will see how she does today. Patient is orthopedically stable for discharge once cleared by medicine. Possibly may require home O2 if continues to require oxygen. Hold therapy on her shoulder until she is about 2 to 3 weeks postop. She may do elbow/wrist/hand motion. Continue with sling mobilization. (2) Postoperative hypoxia: Admission and Anticipated Discharge Date Admission Date: September 02, 2023 Subjective Patient is postop day 2 right r shoulder arthroscopy with with postop hypoxia possibly due to nerve block. She continues to have shortness of breath and continues to require oxygen. Starting to have increased pain in her shoulder. Controlled with pain meds. No other complaints. Denies chest pain, nausea/vomiting/diarrhea, headaches or dizziness. Review of Systems Review of Systems: All systems reviewed & are unremarkable except as noted in Subjective Physical Exam Physical Exam: Right shoulder: Sling in place. Dressings clean, dry, intact. Fingers are mobile with good inner tube inserter strength. Distally neurovascular status and sensation is grossly intact. Constitutional: WD/WN, vitals as above Results & Data Vital Signs (Past 12 Hours) Vital Signs Temp Pulse Resp BP Pulse Ox O2 Del Method O2 Flow Rate 09/04/23 06:31 98 Nasal Cannula 3 09/04/23 06:23 94 Nasal Cannula 3 09/04/23 06:23 75 L Room Air 09/03/23 20:00 36.5 C 74 16 146/89 H 95 Nasal Cannula 2 09/03/23 19:16 Nasal Cannula, CPAP 3
--- NOTE | 2023-09-04 08:08 | Hospitalist Progress Note ---
Date of Service September 04, 2023 Assessment & Plan (1) Postoperative hypoxia: Plan: -Hospital medicine was consulted due to ongoing post-operative hypoxia -CXR ordered and showed right hemidiaphragm elevation, likely due to nerve block from surgery -CTA ordered due to worsened SOB --no evidence of PE -- Supports that the dyspnea is due to right hemidiaphragm elevation, secondary to nerve block -ECG revealed NSR with nonspecific T wave abnormalities; no signs of ACS -Patient continued to require supplemental O2 while hospitalized; respiratory therapy recommended supplemental O2 at 2 L via NC continuously upon discharge (2) Status post right rotator cuff repair: Plan: -Patient had right rotator cuff repair with Dr. Arceo on 09/02/2023 -Pain control, perioperative abx, and DVT PPX managed per the primary team (3) DM type 2 (diabetes mellitus, type 2): Plan: -Pharmacy glycemic consult placed by the primary team while hospitalized -Return to home regimen upon discharge Plan CODE STATUS: Full code Admission and Anticipated Discharge Date Admission Date: September 02, 2023 Subjective Patient seen and evaluated at bedside with daughter and son. She continues to require supplemental oxygen at rest. However, compared to yesterday her dyspnea and tachypnea has improved. Respiratory therapy evaluated the patient this morning, and determined she requires supplemental oxygen at 2 L via nasal cannula continuously. She reports that her pain is well-managed with medication. She has no other complaints at this time. Patient is ready for discharge from a medical perspective. Will defer disposition of discharge to the primary team. Physical Exam Physical Exam: General: No acute distress, nondiaphoretic, well-developed, well-nourished. Right arm in sling. Skin: The skin was without rashes, erythema, edema, or bruising. Adequate perfusion to right fingers. Cardiac: Regular rate and rhythm without murmurs gallops or rubs. Pulm: On 2 L O2 via nasal cannula. No respiratory distress. Decreased breath sounds in the right lower lobe, otherwise lungs are clear. No retractions or accessory muscle use. Abdominal: Positive bowel sounds x 4. Soft, nontender, without masses or organomegaly. No guarding or rebound tenderness. Neuro: A&O x3. No focal neurological deficits. Results & Data Results & Data Vital Signs (Past 12 Hours) Vital Signs Temp Pulse Resp BP Pulse Ox O2 Del Method O2 Flow Rate 09/04/23 07:44 37.0 C 74 18 122/69 94 Room Air 09/04/23 06:31 98 Nasal Cannula 3 09/04/23 06:23 94 Nasal Cannula 3 09/04/23 06:23 75 L Room Air Laboratory Results Reviewed CBC Reviewed CMP PG Care Time/CCT Total # of Minutes Spent Total Time Spent with Patient: Total time spent is greater than 50% in coordination of care (as documented) at patient's floor/unit and/or counseling patient: Coding Level of Care Code 96556 SUB INP/OBS CARE 3/50MIN Diagnoses Postoperative hypoxia R09.02; Z98.890 Status post right rotator cuff repair Z98.890 DM type 2 (diabetes mellitus, type 2) E11.9
[2023-09-04 08:11] LABS: Calcium 9.2 mg/dl (8.6-10.3); Potassium 3.7 mmol/L (3.5-5.1)
[2023-09-04 08:17] LABS: BUN Creatinine Ratio 14.6 (10-20); Creatinine Clr Calc Pharmacy 127.2 ml/min; Est GFR (African American) 77.2 ml/min; Est GFR (Non-African American) 66.6 ml/min
--- NOTE | 2023-09-04 15:11 | Discharge Summary ---
Date of Service September 04, 2023 Admission HPI Per Admitting Provider 68-year-old female with past medical history significant for hypertension, CLARK, DM2 fibromyalgia who presents with ongoing right shoulder pain. Pain is interfering with her daily activities. She has failed conservative measures and like to proceed with surgery. Patient denies headaches, sweats, fevers, chills, double vision, blurred vision, cough, sore throat, dysphagia, chest pain, sob, wheezing, n/v/d/c, numbness, tingling, fatigue, urinary symptoms, mood disorders. ROS positive for right shoulder pain and stiffness. Admission Exam Per Admitting Provider Constitutional: well developed and well nourished; no acute distress Eyes: PERRL, conjunctivae normal, anicteric sclerae ENMT: external ear and nose normal, oropharynx normal Neck: trachea midline, no thyromegaly Respiratory: normal respiratory effort, lungs clear to auscultation Cardiovascular: RRR, no murmur, no edema Musculoskeletal: Right shoulder: Tenderness anterolateral acromion and AC joint. Positive impingement signs. Pain with resisted strength testing. Active abduction and forward flexion 180 degrees, external rotation at 90 degrees. Skin: no rashes, warm and dry Neurologic: patellar DTR's 2+ bilat, sensation intact Psychiatric: A+Ox3, euthymic affect Principal Diagnosis Right shoulder rotator cuff tear Discharge Exam Right shoulder: Sling in place. Dressings clean, dry, intact. Fingers are mobile with good food beverage supervisor strength. Distally neurovascular status and sensation is grossly intact. Discharge Data Allergies Allergy/AdvReac Type Severity Reaction Status Date / Time Penicillins Allergy Intermediate hives Verified 09/02/23 07:50 Sulfa (Sulfonamide Allergy Intermediate HIVES Verified 09/02/23 07:50 Antibiotics) codeine AdvReac Intermediate vomiting Verified 09/02/23 07:50 doxycycline AdvReac Intermediate GI upset Verified 09/02/23 07:50 Consultations 09/02/23 16:56 Consult Hospitalist Routine Procedures Performed Operation Date: 09/02/23 09:25 Actual Procedures p Right Shoulder Arthroscopic Subacromial Decompression, Bursectomy Distal Clavicle Excision, Rotator Cuff Repair with Regeneten Biologial Implant, Debridement(Right) - Chapo Arceo MD Ordered Studies 09/02/23 05:00 US - OR guided needle placemen Routine 09/03/23 11:03 CT angio chest PE protocol Urgent Hospital Course (1) Status post right rotator cuff repair: POD #2 s/p Right Shoulder Arthroscopic rotator cuff repair with suture anchor repair and augmentation with Regeneten biological implant, debridement of rotator cuff, subacromial bursa, synovium glenohumeral joint, fibrous tissue humeral head -Continues to shortness of breath and requires oxygen. Will see how she does today. Patient is orthopedically stable for discharge once cleared by medicine. Possibly may require home O2 if continues to require oxygen. Hold therapy on her shoulder until she is about 2 to 3 weeks postop. She may do elbow/wrist/hand motion. Continue with sling mobilization. POD #1 s/p Right Shoulder Arthroscopic rotator cuff repair with suture anchor repair and augmentation with Regeneten biological implant, debridement of rotator cuff, subacromial bursa, synovium glenohumeral joint, fibrous tissue humeral head patient admitted for post op hypoxia, appreciate medical input. will see how she does this am, if she continues to improve can be d/c home later today. f/u in the office in 10-12 days Lab Results 18/09/02/23 09/02/23 Range/Units 08:20 11:38 17:13 WBC (4.8-10.8) K/ul RBC (4.20-5.40) M/uL Hgb (12.0-16.0) g/dl Hct (37.0-47.0) % MCV (80.0-100.0) fL MCH (25.0-34.0) pg MCHC (32.0-36.0) g/dL RDW Std Deviation (36.4-46.3) fL RDW Coeff of Cooper (11.5-14.5) % Plt Count (130-400) K/uL MPV (9.4-12.4) fL Immature Gran % (Auto) % Neut % (Auto) % Lymph % (Auto) % [place] % (Auto) % Eos % (Auto) % Baso % (Auto) % Neut # (Auto) (1.40-6.50) K/uL Lymph # (Auto) (1.20-3.40) K/uL [place] # (Auto) (0.11-0.59) K/uL Eos # (Auto) (0.00-0.50) K/uL Baso # (Auto) (0.00-0.20) K/uL Immature Gran # (Auto) (0.01-0.20) K/uL Sodium (136-145) mmol/L Potassium (3.5-5.1) mmol/L Chloride (98-107) mmol/L Carbon Dioxide (21-32) mmol/L Anion Gap (3-11) BUN (6-23) mg/dl Creatinine (0.6-1.2) mg/dl Est Cr Clr Drug Dosing ml/min Est GFR ( Amer) ml/min Est GFR (Non-Af Amer) ml/min BUN/Creatinine Ratio (10-20) Glucose (70-99(Fasting)) mg/dl POC Glucose 110 H 169 H 163 H (70-99) mg/dl Calcium (8.6-10.3) mg/dl 09/02/23 09/03/23 09/03/23 Range/Units 20:42 06:35 07:32 WBC 11.12 H (4.8-10.8) K/ul RBC 3.93 L (4.20-5.40) M/uL Hgb 12.2 (12.0-16.0) g/dl Hct 37.0 (37.0-47.0) % MCV 94.1 (80.0-100.0) fL MCH 31.0 (25.0-34.0) pg MCHC 33.0 (32.0-36.0) g/dL RDW Std Deviation 44.5 (36.4-46.3) fL RDW Coeff of Cooper 12.8 (11.5-14.5) % Plt Count 256 (130-400) K/uL MPV 10.5 (9.4-12.4) fL Immature Gran % (Auto) 0.4 % Neut % (Auto) 62.0 % Lymph % (Auto) 26.1 % [place] % (Auto) 10.7 % Eos % (Auto) 0.5 % Baso % (Auto) 0.3 % Neut # (Auto) 6.90 H (1.40-6.50) K/uL Lymph # (Auto) 2.90 (1.20-3.40) K/uL [place] # (Auto) 1.19 H (0.11-0.59) K/uL Eos # (Auto) 0.06 (0.00-0.50) K/uL Baso # (Auto) 0.03 (0.00-0.20) K/uL Immature Gran # (Auto) 0.04 (0.01-0.20) K/uL Sodium 141 (136-145) mmol/L Potassium 3.6 (3.5-5.1) mmol/L Chloride 106 (98-107) mmol/L Carbon Dioxide 25 (21-32) mmol/L Anion Gap 10 (3-11) BUN 13 (6-23) mg/dl Creatinine 0.83 (0.6-1.2) mg/dl Est Cr Clr Drug Dosing 136.4 ml/min Est GFR ( Amer) 84.0 ml/min Est GFR (Non-Af Amer) 72.5 ml/min BUN/Creatinine Ratio 15.7 (10-20) Glucose 125 H (70-99(Fasting)) mg/dl POC Glucose 162 H 119 H (70-99) mg/dl Calcium 9.0 (8.6-10.3) mg/dl 09/03/23 09/03/23 09/03/23 Range/Units 11:37 16:51 20:24 WBC (4.8-10.8) K/ul RBC (4.20-5.40) M/uL Hgb (12.0-16.0) g/dl Hct (37.0-47.0) % MCV (80.0-100.0) fL MCH (25.0-34.0) pg MCHC (32.0-36.0) g/dL RDW Std Deviation (36.4-46.3) fL RDW Coeff of Cooper (11.5-14.5) % Plt Count (130-400) K/uL MPV (9.4-12.4) fL Immature Gran % (Auto) % Neut % (Auto) % Lymph % (Auto) % [place] % (Auto) % Eos % (Auto) % Baso % (Auto) % Neut # (Auto) (1.40-6.50) K/uL Lymph # (Auto) (1.20-3.40) K/uL [place] # (Auto) (0.11-0.59) K/uL Eos # (Auto) (0.00-0.50) K/uL Baso # (Auto) (0.00-0.20) K/uL Immature Gran # (Auto) (0.01-0.20) K/uL Sodium (136-145) mmol/L Potassium (3.5-5.1) mmol/L Chloride (98-107) mmol/L Carbon Dioxide (21-32) mmol/L Anion Gap (3-11) BUN (6-23) mg/dl Creatinine (0.6-1.2) mg/dl Est Cr Clr Drug Dosing ml/min Est GFR ( Amer) ml/min Est GFR (Non-Af Amer) ml/min BUN/Creatinine Ratio (10-20) Glucose (70-99(Fasting)) mg/dl POC Glucose 154 H 116 H 115 H (70-99) mg/dl Calcium (8.6-10.3) mg/dl 09/04/23 09/04/23 09/04/23 Range/Units 06:18 07:40 11:48 WBC 10.57 (4.8-10.8) K/ul RBC 3.92 L (4.20-5.40) M/uL Hgb 12.1 (12.0-16.0) g/dl Hct 38.4 (37.0-47.0) % MCV 98.0 (80.0-100.0) fL MCH 30.9 (25.0-34.0) pg MCHC 31.5 L (32.0-36.0) g/dL RDW Std Deviation 47.3 H (36.4-46.3) fL RDW Coeff of Cooper 13.2 (11.5-14.5) % Plt Count 265 (130-400) K/uL MPV 10.3 (9.4-12.4) fL Immature Gran % (Auto) % Neut % (Auto) % Lymph % (Auto) % [place] % (Auto) % Eos % (Auto) % Baso % (Auto) % Neut # (Auto) (1.40-6.50) K/uL Lymph # (Auto) (1.20-3.40) K/uL [place] # (Auto) (0.11-0.59) K/uL Eos # (Auto) (0.00-0.50) K/uL Baso # (Auto) (0.00-0.20) K/uL Immature Gran # (Auto) (0.01-0.20) K/uL Sodium 141 (136-145) mmol/L Potassium 3.7 (3.5-5.1) mmol/L Chloride 105 (98-107) mmol/L Carbon Dioxide 30 (21-32) mmol/L Anion Gap 6 (3-11) BUN 13 (6-23) mg/dl Creatinine 0.89 (0.6-1.2) mg/dl Est Cr Clr Drug Dosing 127.2 ml/min Est GFR ( Amer) 77.2 ml/min Est GFR (Non-Af Amer) 66.6 ml/min BUN/Creatinine Ratio 14.6 (10-20) Glucose 123 H (70-99(Fasting)) mg/dl POC Glucose 127 H 106 H (70-99) mg/dl Calcium 9.2 (8.6-10.3) mg/dl Total Time Total Time Spent Total Time Spent (In Minutes): 20 Discharge Plan Discharge Items Patient Disposition: Home - Self-Care Reason For Visit: POSTOP Discharge Diagnosis: Right shoulder rotator cuff tear Activity: Per Instructions section Non-emergency contact: Surgeon Call non-emergency contact if: you have any medication questions, your pain is concerning for you, you have a fever, your temperature is above 101, your wound has increased redness and your wound has increased drainage Follow-up/Referrals: Nia Rodriguez MD [Primary Care Provider] - 09/06/23 8:50 am Chapo Arceo MD [Surgeon] - Diet: Regular Addtl Attending Provider Instructions: [facility] DISCHARGE INSTRUCTIONS: ROTATOR CUFF REPAIR SELF CARE INSTRUCTIONS A. You are permitted to loosen your sling/immobilizer to move your elbow, wrist, and hand to prevent stiffness. You should use your well arm (good arm) to assist the operated extremity when trying to raise the arm away from the body, hygiene purposes. Do NOT actively try to use/engage your shoulder muscles in operative arm at this time. You should NOT do overhead activity, lifting, or attempt to reach behind your back. B. We will not be starting physical therapy at this time. You will be provided an order to start 2-3 weeks post surgery at your initial post operative visit. C. At 48 hours post-operatively, you may change your dressing. (Leave white steri-strips intact if present). Use band-aids and change daily. You are allowed to shower at this time and get the incision area wet, but DO NOT soak or submerge incision area in water. (No baths, swimming pools, hot t ubs) D. Do NOT apply soap or any ointment/lotions directly over incision. E. You may use ice as needed to operative shoulder SPECIAL CARE INSTRUCTIONS: VERY IMPORTANT TO READ AND REVIEW A. There are a few signs you need to watch for after you are home. Call [facility] at [phone] if you experience any of the following: a. Increased severe shoulder pain. Some pain is expected especially when you exercise b. Increased swelling in your shoulder or arm; pain or swelling in either upper extremity. (Note: swelling and stiffness is normal and expected for several weeks post op, depending on type of shoulder surgery you had). c. Any fluid or drainage from the incision; redness of the incision. d. Shortness of breath or chest pain. B. Please call [facility] at [phone] if you have any questions or concerns about your operation or recovery. C. Call your physician if: a. Temperature is greater than 101 degrees (F). b. Pain is not relieved by prescribed pain medications. c. Increase drainage or redness from incision. d. Unanswered questions or concerns. D. Pain Medication: a. You will be prescribed pain medication upon discharge that should last till your first post-operative appointment. b. If you experience nausea and/or skin rash, discontinue this medication and contact our office for an alternative medication. c. Caution- narcotic pain medication can cause constipation. FOLLOW UP VISIT: Please call [facility] at [phone] to schedule a follow up appointment 10-14 days from your surgery date. Addtl District Director Provider Instructions: You were seen by the hospital medicine team after surgery due to decreased oxygen levels. You had a chest x-ray and a CT scan of your chest which revealed the right side of your diaphragm being elevated. This is secondary to the nerve block from surgery for your right shoulder. This will improve on its own with time. You have been requiring supplemental oxygen to keep your oxygen saturation up. You are being discharged home on supplemental oxygen. The respiratory therapist recommended 2 L of supplemental oxygen via nasal cannula continuously. This means you should wear it at rest and with activity. Follow-up with your PCP for the management of the supplemental oxygen. They will determine if you need to continue using it or if you can stop. Since you said you have an appointment with them next Saturday, you can discuss this with them then and do not need to make an appointment for sooner. Please return to the hospital if you experience any of the following: Worsened shortness of breath despite supplemental oxygen, chest pain, fast heart rate, fainting, or pain/swelling/redness in your leg or arm. Stand-Alone Forms: Anesthesia/Sedation, Adult, [facility] Medications and DC Order Prescriptions: New oxycodone-acetaminophen [Percocet] 5-325 mg Tablet 1 - 2 tab PO .Q4h-6h MDD 6 PRN (Reason: pain) Qty: 30 0RF Rx Instructions: Ongoing therapy, Dr. Arceo supervsising ondansetron HCl 4 mg tablet 4 mg PO Q8H Qty: 20 0RF Continued gabapentin 300 mg capsule 300 mg PO HS ondansetron HCl 8 mg tablet 8 mg PO Q12H PRN (Reason: NAUSEA/VOMITING) lorazepam 0.5 mg tablet 0.5 mg PO DAILY PRN (Reason: Anxiety) metoprolol succinate 25 mg tablet extended release 24 hr 25 - 50 mg PO BID Rx Instructions: takes 2 tabs in am/1 at hs lisinopril 5 mg tablet 20 mg PO QAM metformin 500 mg tablet 500 mg PO HS rabeprazole [AcipHex] 20 mg tablet,delayed release (DR/EC) See Rx Instructions .ROUTE .COMPLEX Rx Instructions: Take 2 tabs in am, 1 tab at hs atorvastatin 10 mg tablet 10 mg PO QAM aspirin 81 mg Tablet,Delayed Release (Dr/Ec) 81 mg PO HS meclizine 25 mg Tablet 25 mg PO TID PRN (Reason: dizzyness) duloxetine 30 mg capsule,delayed release(DR/EC) 30 mg PO QAM Rx Instructions: TOTAL DOSE 90 MG--TAKES WITH 60 MG CAP. duloxetine 60 mg capsule,delayed release(DR/EC) 60 mg PO QAM Rx Instructions: TOTAL DOSE 90 MG--TAKES WITH 30 MG CAP. cholecalciferol (vitamin D3) [Vitamin D3] 25 mcg (1,000 unit) Tablet 25 mcg PO HS Discontinued acetaminophen [Tylenol Extra Strength] 500 mg Tablet 1,000 mg PO Q6H PRN (Reason: Pain) Discharge Orders: Discharge Order (Routine); Ordered 09/04/23 Ordered By: Tomas Fong/Other Patient Handouts: DVT Post Op Prevention Admission Data Admit Date/Time: 09/02/23 16:02 Attending Provider: Chapo Arceo Admit Provider: Chapo Arceo Primary Care Provider: Nia Rodriguez Other Interventions: Discharge Summary Assessment (RN) Last Done: 09/04/23 11:06
== END 2023-09-04 13:23 | disposition home or self-care (01) ==
LOC: 3N 07:28 → ASU 07:28